=== PATIENT | female | born 1930 | race Caucasian/White ===

== ENCOUNTER 2019-08-31 11:42 | Outpatient (CLI) | payer MEDICARE, OTHER ==
[~2019-08-31 11:42] MED LIST: AMIODARONE HCL400 M1 ORAL; AMLODIPINE BESYL5 MG ORAL; ATORVASTATIN CA20 MG ORAL; DIGOXIN125 MCG ORAL; FOLIC ACID1 MG ORAL; GABAPENTIN100 MG ORAL; METOPROLOL TART25 MG ORAL; TRAMADOL HCL50 MG ORAL; WARFARIN SODIUM5 MG ORAL
[2019-08-31 11:54] VITALS: BP 127/63
[2019-08-31] MEDS ORDERED: PRAVASTATIN SOD10 M1 ORAL (14:41)
[2019-08-31] MEDS ORDERED: MYRBETRIQ25 MG PO (14:41)
[2019-08-31] MEDS ORDERED: VITAMIN D350 MCG PO (14:41)
[2019-08-31] MEDS ORDERED: PROPRANOLOL HCL10 MG ORAL (14:41)
[2019-08-31] MEDS ORDERED: FUROSEMIDE20 M1 ORAL (14:41)
[2019-08-31] MEDS ORDERED: MAGNESIUM OXID400 M1 ORAL (14:41)
[2019-08-31] MEDS ORDERED: POTASSIUM CHLO10 ME2 PO (14:41)
[2019-08-31] MEDS ORDERED: ASPIRIN EC81 MG ORAL (14:41)
[2019-08-31] MEDS ORDERED: ADALAT CC30 MG ORAL (14:41)
--- NOTE | 2019-08-31 14:45 | General Progress Note ---
Assessment/Plan Problem List: (1) Synthetic valve placement. (2) CAD (coronary artery disease) ICD Codes: I25.10 - CAD (coronary artery disease) SNOMED: 49813190 (3) Arthritis ICD Codes: M19.90 - Arthritis SNOMED: 6091540 (4) HTN (hypertension) ICD Codes: I10 - HTN (hypertension) SNOMED: 23145960 (5) Dyslipidemia ICD Codes: E78.5 - Dyslipidemia SNOMED: 659027732 (6) Abdominal pain ICD Codes: R10.9 - Abdominal pain SNOMED: 96918120 (7) N&V (nausea and vomiting) ICD Codes: R11.2 - N&V (nausea and vomiting) SNOMED: 97840301 (8) Diarrhea ICD Codes: R19.7 - Diarrhea SNOMED: 22745860 Assessment/Plan: dc magnisum avoid dairy product VSL#3 celiac panel not stable for colonoscopy plan dc ASA if no improvement consider creon Subjective ROS Limited/Unobtainable: Yes Allergies: Coded Allergies: PENICILLINS (Verified Allergy, Unknown, 05/31/11) Objective General Appearance: alert EENT: normal ENT inspection Neck: supple Cardiovascular: normal rate Abdomen: non tender, soft Talon Benjamin MD August 31, 2019 14:45
== END 2019-08-31 13:42 | disposition home or self-care (01) ==
LOC: PAN 11:42
DX: R19.7 Diarrhea, unspecified (principal); R11.2 Nausea with vomiting, unspecified; R10.9 Unspecified abdominal pain; E78.5 Hyperlipidemia, unspecified; I10 Essential (primary) hypertension; M19.90 Unspecified osteoarthritis, unspecified site; I25.10 Atherosclerotic heart disease of native coronary artery without angina pectoris; Z95.4 Presence of other heart-valve replacement; Z88.0 Allergy status to penicillin
CPT/HCPCS: 99212